=== PATIENT | female | born 1970 | race Hispanic/Latino ===

== ENCOUNTER 2017-12-09 20:35 | Emergency (ER) | payer OTHER ==
[~2017-12-09] VITALS: Ht 154.9 cm; Wt 87.1 kg
[~2017-12-09 20:35] MED LIST: FERROUS SULFAT325 MG PO; LISINOPRIL40 MG PO; LISINOPRIL5 MG PO; LOVASTATIN20 MG PO; NORCO 5-325 TA1 EACH PO; PROTONIX40 MG PO; VITAMIN C500 MG/15 PO
--- NOTE | 2017-12-10 13:38 | EKG ---
[facility] [address] [facility] [place] [address] Signed Normal sinus rhythm Possible Left atrial enlargement Low voltage QRS Borderline ECG Confirmed by MARIA DE JESUS DELANEY MD ([id number]) on 12/10/2017 1:38:01 PM Electronically Signed By: MARIA DE JESUS DELANEY MD 12/10/17 1338 PATIENT NAME: TY TRIVEDICHIARA Electrocardiogram DATE OF : 66 PHYSICIAN: MARIA DE JESUS DELANEY MD REPORT #: [id number] REPORT IS CONFIDENTIAL AND NOT TO BE RELEASED WITHOUT AUTHORIZATION
== END 2017-12-09 23:19 | disposition home or self-care (01) ==
LOC: ED 20:35
DX: G43.109 Migraine with aura, not intractable, without status migrainosus (principal); I10 Essential (primary) hypertension; Z79.899 Other long term (current) drug therapy
CPT/HCPCS: 70450; 80053; 84484; 84703; 85025; 85651; 93005; 93010; 96374; 96375; 99284; J1200; J2765

== ENCOUNTER 2018-05-08 17:07 | Emergency (ER) | payer OTHER ==
[~2018-05-08] VITALS: Ht 154.9 cm; Wt 87.1 kg
[2018-05-08] MEDS ORDERED: PAROXETINE HCL20 MG PO (17:19)
[2018-05-08] MEDS ORDERED: METOPROLOL TART25 MG PO (17:19)
== END 2018-05-08 18:12 | disposition home or self-care (01) ==
LOC: ED 17:07
DX: S70.01XA Contusion of right hip, initial encounter (principal); W18.2XXA Fall in (into) shower or empty bathtub, initial encounter; I10 Essential (primary) hypertension; E78.00 Pure hypercholesterolemia, unspecified; Z79.899 Other long term (current) drug therapy
CPT/HCPCS: 73502; 99283

== ENCOUNTER 2018-09-19 08:13 | Emergency (ER) | payer OTHER ==
[~2018-09-19] VITALS: Ht 154.9 cm; Wt 87.1 kg
[~2018-09-19 08:13] MED LIST changes: +METOPROLOL TART25 MG PO; +PAROXETINE HCL20 MG PO
[2018-09-19] MEDS ORDERED: ZOFRAN ODT4 MG PO (10:00)
[2018-09-19] MEDS ORDERED: MECLIZINE HCL25 MG PO (10:00)
--- NOTE | 2018-09-20 08:23 | EKG ---
[facility] [address] [facility] [place] [address] Signed Normal sinus rhythm Low voltage QRS Borderline ECG Confirmed by MARIA DE JESUS DELANEY MD ([id number]) on 09/20/2018 8:22:57 AM Electronically Signed By: MARIA DE JESUS DELANEY MD 09/20/18 0823 PATIENT NAME: CRAWFORD SEGUN TRIVEDIRIELA Electrocardiogram DATE OF : 66 PHYSICIAN: MARIA DE JESUS DELANEY MD REPORT #: [id number] REPORT IS CONFIDENTIAL AND NOT TO BE RELEASED WITHOUT AUTHORIZATION
== END 2018-09-19 10:22 | disposition home or self-care (01) ==
LOC: ED 08:13
DX: R42 Dizziness and giddiness (principal); I10 Essential (primary) hypertension; E78.00 Pure hypercholesterolemia, unspecified; Z79.899 Other long term (current) drug therapy
CPT/HCPCS: 70450; 80053; 84484; 85025; 93005; 93010; 96374; 99284

== ENCOUNTER 2019-08-21 09:47 | Emergency (ER) | payer OTHER ==
[~2019-08-21] VITALS: Ht 154.9 cm; Wt 87.1 kg
--- OUTSIDE RECORDS SUMMARY | ~2019-08-21 | XMS | Clinical Summary ---
Demographics + + + | Address | [address] | | | [place] [address] | + + + | Home Phone | | + + + | Preferred Language | Unknown | + + + | Marital Status | | + + + | Confucianist Affiliation | [id number] | + + + | Race | Unknown | + + + | Ethnic Group | Unknown | + + + Author + + + | Author | [facility] (Historical as of | | | 06-28-19) | + + + | Organization | [facility] (Historical as of | | | [...] Team Providers + +------+ + | Care Tobacco Curer Name | Role | Phone | + [...] + | [employer] | FC-NET | [id number] | | | | | | WORK | | | | | + +--------+ +------+-------+ + | MEDICAID | MEDICA | [id number] | | | [address] | | | [place] | | | | [place] | | | [place] | | | | [address] | + +--------+ +------+-------+ + + +--------+ [...] | 1970 | [phone] | [place] [address] | | | umm | | | [phone] | | + +--------+ +--------+ + +"
[~2019-08-21 09:47] MED LIST changes: +MECLIZINE HCL25 MG PO; +ZOFRAN ODT4 MG PO
--- OUTSIDE RECORDS SUMMARY | 2019-08-21 09:50 | XMS ---
PreManage Notification: CHIARA CARROLL Security Offset Label Rewinder Events No recent Security Events currently on file CRITERIA MET - Group Notification - [facility] [place] CARE PROVIDERS JAMES MATHEWS Physician Computer Numerical Control Grinder 09/25/2018-Current PHONE: [phone] Meera Burks Nurse Practitioner: Family Current INSPECTOR AIDE PHONE: Unknown Meera Burks Treatment Current INSPECTOR AIDE PHONE: Unknown [facility] Current [facility] PHONE: [phone] Anika has no Care Guidelines for this patient. Care History Medical/Surgical 09/25/2018 [facility] - W CONTACTED DR JAMES MATHEWS OFFICE. - PATIENT HAS NOT SEEN PROVIDER AND OR CLINIC SINCE FEBRUARY 22, 2016. - PATIENT DOES NOT HAVE A PCP. - W SENT PATIENT A NO PCP LETTER. E.D. VISIT COUNT (12 MO.) 3 [facility]. TOTAL 3 NOTE: Visits indicate total known visits. ED/UCC VISIT TRACKING (12 MO.) 08/21/2019:48 [facility] [place] TYPE: Emergency COMPLAINT: - VOMITING, FEVER 09/24/2018 21:[address] [facility] [place] TYPE: Emergency COMPLAINT: - BLOOD PRESSURE PROBLEM,CHEST PAIN DIAGNOSES: - Essential (primary) hypertension - Other detention (current) drug therapy - Pure hypercholesterolemia, unspecified - Other chest pain - Chest pain, unspecified 09/19/2018 08:[address] [facility] [place] TYPE: Emergency COMPLAINT: - HEAD PAIN,NON INJURY DIAGNOSES: - Pure hypercholesterolemia, unspecified - Headache - Essential (primary) hypertension - Other meterman (current) drug therapy - Dizziness and giddiness INPATIENT VISIT TRACKING (12 MO.) No inpatient visits to display in this time frame [email or web address]
[2019-08-21] MEDS ORDERED: LISINOPRIL-HCT1 EAC1 PO (10:00)
[2019-08-21] MEDS ORDERED: ACID REDUCER 1150 MG PO (10:00)
[2019-08-21] MEDS ORDERED: PRAVASTATIN SOD10 MG PO (10:01)
[2019-08-21] MEDS ORDERED: ONDANSETRON ODT8 MG PO (16:29)
== END 2019-08-21 16:37 | disposition home or self-care (01) ==
LOC: ED 09:47
DX: A90 Dengue fever [classical dengue] (principal); B34.9 Viral infection, unspecified; I10 Essential (primary) hypertension; E78.00 Pure hypercholesterolemia, unspecified; Z79.899 Other long term (current) drug therapy
CPT/HCPCS: 36415; 80053; 85025; 96361; 96374; 96375; 99283-25; J1885; J2405; J7030

== ENCOUNTER 2019-08-24 17:18 | Emergency (ER) | payer OTHER ==
[~2019-08-24] VITALS: Ht 154.9 cm; Wt 87.1 kg
--- OUTSIDE RECORDS SUMMARY | ~2019-08-24 | XMS | Clinical Summary ---
Demographics + + + | Address | [address] | | | [place] [address] | + + + | Home Phone | | + + + | Preferred Language | Unknown | + + + | Marital Status | | + + + | Alevism Affiliation | 1041 | + + + | Race | Unknown | + + + | Ethnic Group | Unknown | + + + Author + + + | Author | [facility] [employer] (Historical as of | | | 06-28-19) | + + + | Organization | [facility] (Historical as of | | | 06-28-19) | + + + | Address | Unknown | + + + | Phone | Unavailable | + + + Support + + +---------+ + | Name | Relationship | Address | Phone | + + +---------+ + | Glo King | ECON | Unknown | | | Martín | | | | + + +---------+ + Care Team Providers + +------+ + | Care Pulpit Operator Name | Role | Phone | + +------+ + | Meera Burks | PP | | + +------+ + Allergies + + + + + + | Active Allergy | Reactions | Severity | Noted | Comments | | | | | Date | | + + + + + + | Amoxicillin | Hives | High | 11/11/20 | | | | | | 18 | | + + + + + + | Clarithromycin | Hives | High | 11/11/20 | | | | | | 18 | | + + + + + + | Atorvastatin | Other (See Comments) | Medium | 11/11/20 | Fatigue and Muscle | | | | | 18 | Pain. | + + + + + + Current Medications + + +-------+---------+------+------+-------+ | Prescription | Sig. | Disp. | Refills | Star | End | Statu | | | | | | t | Date | s | | | | | | Date | | | + + +-------+---------+------+------+-------+ | pravastatin | Take 10 mg by mouth | | | | | Activ | | (PRAVACHOL) 10 MG | nightly. | | | | | e | | tablet | | | | | | | + + +-------+---------+------+------+-------+ | azithromycin | Take 250 mg by mouth | | | | | Activ | | (ZITHROMAX) 250 MG | daily. TAKE TWO | | | | | e | | tablet | TABLETS BY MOUTH NOW | | | | | | | | then ONE TABLET | | | | | | | | DAILY DAY 2-5 | | | | | | + + +-------+---------+------+------+-------+ | PARoxetine (PAXIL) | Take 30 mg by mouth | | | | | Activ | | 30 MG tablet | every morning. | | | | | e | + + +-------+---------+------+------+-------+ | metoprolol | Take 25 mg by mouth | | | | | Activ | | (LOPRESSOR) 25 MG | 2 (two) times daily. | | | | | e | | tablet | | | | | | | + + +-------+---------+------+------+-------+ | ondansetron | Take 4 mg by mouth 3 | | | | | Activ | | (ZOFRAN) 4 MG tablet | (three) times daily | | | | | e | | | as needed for | | | | | | | | Nausea. | | | | | | + + +-------+---------+------+------+-------+ | aspirin 81 MG | Take 81 mg by mouth | | | | | Activ | | tablet | daily. | | | | | e | + + +-------+---------+------+------+-------+ | meclizine | Take 25 mg by mouth | | | | | Activ | | (ANTIVERT) 25 MG | 3 (three) times | | | | | e | | tablet | daily as needed. | | | | | | + + +-------+---------+------+------+-------+ | lisinopril | Take 40 mg by mouth | | | | | Activ | | (ZESTRIL) 40 MG | daily. | | | | | e | | tablet | | | | | | | + + +-------+---------+------+------+-------+ | ranitidine | Take 150 mg by mouth | | | | | Activ | | (ZANTAC) 150 MG | 2 (two) times | | | | | e | | tablet | daily. | | | | | | + + +-------+---------+------+------+-------+ | pantoprazole | Take 40 mg by mouth | | | | | Activ | | (PROTONIX) 40 MG | every morning before | | | | | e | | tablet | breakfast. | | | | | | + + +-------+---------+------+------+-------+ Active Problems Not on file Social History + +-------+ +--------+------+ | Tobacco Use | Types | Packs/Day | Years | Date | | | | | Used | | + +-------+ +--------+------+ | Never Smoker | | | | | + +-------+ +--------+------+ + +---+---+---+ | Smokeless Tobacco: | | | | | Never Used | | | | + +---+---+---+ + + +---------+ + | Alcohol Use | Drinks/We | oz/Week | Comments | | | ek | | | + + +---------+ + | Yes | | | Ocassionally. | + + +---------+ + + + + | Sex Assigned at | Date Recorded | | | | + + + | Not on file | | + + + Plan of Treatment + + + + + | Health Maintenance | Due Date | Last Done | Comments | + + + + + | Vaccine: | | | | | Dtap/Tdap/Td (1 - | 7 | | | | Tdap) | | | | + + + + + | Cervical Cancer | | | | | Screening (Pap) | 8 | | | + + + + + | Vaccine: Zoster (1 | | | | | of 2) | 8 | | | + + + + + | Vaccine: Influenza | | | | | (#1) | 9 | | | + + + + + Results Not on filefrom Last 3 Months Insurance + +--------+ +------+-------+ + | Payer | Benefi | Subscriber | Type | Phone | Address | | | t Plan | ID | | | | | | / | | | | | | | Group | | | | | + +--------+ +------+-------+ + | [employer] | FC-NET | [id number] | | | | | | WORK | | | | | + +--------+ +------+-------+ + | MEDICAID | MEDICA | [id number] | | | [address] | | | ID | | | | [place] | | | [place] | | | | [phone] | + +--------+ +------+-------+ + + +--------+ +--------+ + + | Guarantor Name | Accoun | Relation to | Date | Phone | Billing Address | | | t Type | Patient | of | | | | | | | | | | + +--------+ +--------+ + + | TY DE | Person | Self [birth year] Home: | [address] | | CHIARA KING | al/Humble | | 1970 | [phone] | [place] [address] | | | umm | | | [phone] | | + +--------+ +--------+ + +"
--- OUTSIDE RECORDS SUMMARY | ~2019-08-24 | XMS | Clinical Summary ---
Demographics + + + | Address | [address] | | | [place] [address] | + + + | Home Phone | | + + + | Preferred Language | Unknown | + + + | Marital Status | | + + + | Restorationist Affiliation | 1041 | + + + | Race | Unknown | + + + | Ethnic Group | Unknown | + + + Author + + + | Author | [facility] (Historical as of | | | 06-28-19) | + + + | Organization | [facility] (Historical as of | | | [...] Team Providers + +------+ + | Care Spring Machine Operator Name | Role | Phone | [...] + | [employer] | FC-NET | [id number] | | | | | | WORK | | | | | + +--------+ +------+-------+ + | MEDICAID | MEDICA | [id number] | | | [address] | | | ID | | | | [place] | | | [place] | | | | [phone] | + +--------+ +------+-------+ + + +--------+ [...] | 1970 | [phone] | [place] [address] | | | umm | | | [phone] | | + +--------+ +--------+ + +"
[~2019-08-24 17:18] MED LIST changes: +ACID REDUCER 1150 MG PO; +LISINOPRIL-HCT1 EAC1 PO; +ONDANSETRON ODT8 MG PO; +PRAVASTATIN SOD10 MG PO
--- OUTSIDE RECORDS SUMMARY | 2019-08-24 17:22 | XMS ---
PreManage Notification: CHIARA CARROLL Security Jewel Grinder Events No recent Security Events currently on file CRITERIA MET - Group Notification - [facility] - Has Care Guidelines - [facility] - 2 Visits in 30 Days CARE PROVIDERS JAMES MATHEWS Physician 09/25/2018-Current PHONE: [phone] Meera Burks Nurse Practitioner: Family Current PHARMACOMETRICIAN PHONE: Unknown Meera Burks Treatment Current PHARMACOMETRICIAN PHONE: Unknown [facility] PHONE: [phone] Anika has no Care Guidelines for this patient. Care History Medical/Surgical 09/25/2018 [facility] - W CONTACTED DR JAMES MATHEWS OFFICE. - PATIENT HAS NOT SEEN PROVIDER AND OR CLINIC SINCE FEBRUARY 22, 2016. - PATIENT DOES NOT HAVE A PCP. - W SENT PATIENT A NO PCP LETTER. E.[place]. VISIT COUNT (12 MO.) 4 [facility]. TOTAL 4 NOTE: Visits indicate total known visits. ED/UCC VISIT TRACKING (12 MO.) 08/24/2019 17:[address] [facility] [place] TYPE: Emergency COMPLAINT: - VOMITING, FEVER 08/21/2019 09:48 [facility] [place] TYPE: Emergency COMPLAINT: - VOMITING, FEVER 09/24/2018 21:[address] [facility] [place] TYPE: Emergency COMPLAINT: - BLOOD PRESSURE PROBLEM,CHEST PAIN DIAGNOSES: - Essential (primary) hypertension - Other skilled nursing (current) drug therapy - Pure hypercholesterolemia, unspecified - Other chest pain - Chest pain, unspecified 09/19/2018 08:[address] [facility] [place] TYPE: Emergency COMPLAINT: - HEAD PAIN,NON INJURY DIAGNOSES: - Pure hypercholesterolemia, unspecified - Headache - Essential (primary) hypertension - Other skilled nursing (current) drug therapy - Dizziness and giddiness INPATIENT VISIT TRACKING (12 MO.) No inpatient visits to display in this time frame [email or web address]
[2019-08-24] MEDS ORDERED: ZOFRAN4 MG PO (19:36)
== END 2019-08-24 20:26 | disposition home or self-care (01) ==
LOC: ED 17:18
DX: B34.9 Viral infection, unspecified (principal); I10 Essential (primary) hypertension; Z79.899 Other long term (current) drug therapy
CPT/HCPCS: 80053; 81001; 83605; 85025; 85610; 85730; 96361; 96374; 99284-25; J2405; J7030

== ENCOUNTER 2023-03-14 09:06 | Emergency (ER) | payer OTHER ==
[~2023-03-14] VITALS: Ht 154.9 cm; Wt 90.7 kg
[~2023-03-14 09:06] MED LIST changes: +HYDROXYZINE PAM25 MG PO; +LEVOTHYROXINE50 MCG PO; +OMEPRAZOLE20 MG PO; +ZOFRAN4 MG PO
--- OUTSIDE RECORDS SUMMARY | 2023-03-14 09:11 | XMS ---
PreManage Notification: CHIARA CARROLL Security Scrubber Machine Tender Events No recent Security Events currently on file CRITERIA MET - [facility] - 2 Visits in 30 Days - Group Notification CARE PROVIDERS -, [place]- Dentist: Bid Manager [facility] PHONE: [phone] JAMES MATHEWS Physician Senior Tax Specialist 09/25/2018-Current PHONE: Unknown Meera Burks Nurse Practitioner: Family Current SPARE HAND CARDING PHONE: Unknown Anika has no Care Guidelines for this patient. Care History Medical/Surgical 09/25/2018 [facility] - W CONTACTED DR JAMES MATHEWS OFFICE. - PATIENT HAS NOT SEEN PROVIDER AND OR CLINIC SINCE FEBRUARY 22, 2016. - PATIENT DOES NOT HAVE A PCP. - W SENT PATIENT A NO PCP LETTER. EEusebia VISIT COUNT (12 MO.) 2 [facility] TOTAL 2 NOTE: Visits indicate total known visits. ED/UCC VISIT TRACKING (12 MO.) 03/14/2023 09:06 [facility] [place] TYPE: Emergency COMPLAINT: - EXTREMITY PAIN/INJURY 03/07/2023 22:[address] [facility] [facility] [place] TYPE: Emergency COMPLAINT: - LT ARM INJURY DIAGNOSES: - Displaced fracture of coracoid process, left shoulder, initial encounter for closed fracture - Displaced fracture of head of left radius, initial encounter for closed fracture - Essential (primary) hypertension - Fall on same level from slipping, tripping and stumbling without subsequent striking against object, initial encounter - Hormone replacement therapy - Other terminal manager (current) drug therapy - Pain in left elbow INPATIENT VISIT TRACKING (12 MO.) No inpatient visits to display in this time frame [email or web address]
[2023-03-14] MEDS ORDERED: HYDROCODON-ACE1 EA10 PO (13:58)
[2023-03-14 14:30] VITALS: BP 143/91
== END 2023-03-14 14:30 | disposition home or self-care (01) ==
LOC: ED 09:06
DX: S52.122A Displaced fracture of head of left radius, initial encounter for closed fracture (principal); S52.042A Displaced fracture of coronoid process of left ulna, initial encounter for closed fracture; X58.XXXA Exposure to other specified factors, initial encounter; I10 Essential (primary) hypertension; Z79.899 Other long term (current) drug therapy
CPT/HCPCS: 73070; 73080; 73200; J1170; J2250

== ENCOUNTER 2024-05-26 17:21 | Emergency (ER) | payer OTHER ==
[~2024-05-26] VITALS: Ht 154.9 cm; Wt 104.0 kg
[~2024-05-26 17:21] MED LIST changes: +HYDROCODON-ACE1 EA10 PO; +NAPROSYN500 MG PO; +ONDANSETRON ODT4 MG PO
[2024-05-26] MEDS ORDERED: NITROGLYCERIN 0.4 MG SUBL SL PRN (18:15)
[2024-05-26] MEDS ORDERED: ASPIRIN 81 MG CHEW PO ONE (18:15)
[2024-05-26 18:17] LABS: BASOPHILS 0.9 % (0-2); EOSINOPHILS 0.6 % (0-6); HEMATOCRIT 44.1 % (35.0-50.0); HEMOGLOBIN 14.2 g/dL (12.0-18.0); LYMPHOCYTES 17.4 % (24-44); MCH 26.7 (27-36); MCHC 32.3 g/dl (30-36); MCV 82.8 fl (81-99); NEUTROPHILS 76.1 % (39-80); PLATELET COUNT 339 K/uL (140-440); RBC 5.33 M/ul (4.3-5.7); RDW 17.8 (10.5-15.0)
[2024-05-26] MEDS ORDERED: PAROXETINE HCL40 MG PO (18:22)
[2024-05-26 18:28] LABS: ALBUMIN 3.5 g/dL (3.4-5.0); ALBUMIN/GLOBULIN RATIO 0.64 (1.1-2.4); ALKALINE PHOSPHATASE 151 U/L (46-116); ALT (SGPT) 27 U/L (14-59); ANION GAP 12.7 (7-21); AST (SGOT) 19 U/L (15-37); BILIRUBIN, TOTAL 0.5 ng/dL (0.2-1.0); BUN/CREATININE RATIO 12.72 (6.0-28.6); CALCIUM 9.1 mg/dL (8.5-10.1); CARBON DIOXIDE 30 mmol/L (21-32); CHLORIDE 101 mmol/L (98-107); GLOMERULAR FILTRATION RATE,EST 59 mL/min (>60); MAGNESIUM 1.7 mg/dL (1.8-2.4); POTASSIUM 3.7 mmol/L (3.5-5.1); UREA NITROGEN 14 mg/dL (7-18)
[2024-05-26] MEDS ORDERED: LORazepam 0.5 MG TAB PO ONE (19:45)
[2024-05-26] MEDS ORDERED: MAGNESIUM OXIDE 400 MG TABLET PO ONE (20:15)
[2024-05-26] MEDS ORDERED: LORazepam 1 MG HOME.PACK PO ONE (20:15)
[2024-05-26 20:31] VITALS: BP 122/76
--- NOTE | 2024-05-26 21:29 | EKG ---
[facility] [address] [facility] [address] [place] [address] Signed Normal sinus rhythm Low voltage QRS Borderline ECG When compared with ECG of 24-SEP-2018 21:16, No significant change was found Confirmed by Fabiola Sanders MD () on 05/26/2024 9:29:42 PM Electronically Signed By: FABIOLA SANDERS MD 05/26/242128 PATIENT NAME: CHIARA CARROLL Electrocardiogram DATE OF : 66 PHYSICIAN: FABIOLA SANDERS MD REPORT #: [id number] REPORT IS CONFIDENTIAL AND NOT TO BE RELEASED WITHOUT AUTHORIZATION
== END 2024-05-26 20:32 | disposition home or self-care (01) ==
LOC: ED 17:21
PROVIDERS: Emergency Medicine
DX: F41.0 Panic disorder [episodic paroxysmal anxiety] (principal); I10 Essential (primary) hypertension; E78.00 Pure hypercholesterolemia, unspecified; E03.9 Hypothyroidism, unspecified; Z79.890 Hormone replacement therapy; Z79.899 Other long term (current) drug therapy
CPT/HCPCS: 36415; 71045; 80053; 83735; 84484; 85025; 93005; 93010; A9270

== ENCOUNTER 2025-07-22 08:49 | Emergency (ER) | payer OTHER ==
[~2025-07-22] VITALS: Ht 154.9 cm; Wt 100.9 kg
[~2025-07-22 08:49] MED LIST changes: +PAROXETINE HCL40 MG PO
[2025-07-22] MEDS ORDERED: PRAVASTATIN SOD20 MG PO (09:08)
[2025-07-22] MEDS ORDERED: TOPIRAMATE50 MG PO (09:09)
[2025-07-22] MEDS ORDERED: OLANZAPINE2.5 MG PO (09:10)
[2025-07-22 09:16] LABS: BASOPHILS 0.8 % (0.1-1.2); EOSINOPHILS 1.3 % (0.7-5.8); LYMPHOCYTES 25.9 % (19.3-51.7); MCH 26.8 PG (25.6-32.2); MCHC 31.5 g/dL (32.2-35.5); MCV 84.9 fL (79.4-94.8); MONOCYTES 4.2 % (4.7-12.5); NEUTROPHILS 67.5 % (34.0-71.1); RBC 5.23 M/uL (3.93-5.22)
[2025-07-22 09:28] LABS: INR 0.99 (0.80-1.30); PROTIME 12.4 Sec (11.2-14.2)
[2025-07-22 09:41] LABS: ALT (SGPT) 18.0 U/L (14-59); AST (SGOT) 17.0 U/L (15-37); GLOMERULAR FILTRATION RATE,EST 87.0 mL/min (>60); PROTEIN, TOTAL 8.1 g/dL (6.4-8.2); UREA NITROGEN 10.0 mg/dL (7-18)
[2025-07-22 09:56] LABS: BLOOD/HGB, URINE NEGATIVE (Negative); KETONE, URINE NEGATIVE (Negative); LEUK ESTERASE, URINE NEGATIVE (negative); NITRITE, URINE NEGATIVE (negative)
[2025-07-22] MEDS ORDERED: LORazepam 2 MG/ML VIAL IV ONE (10:00)
[2025-07-22 10:03] LABS: BACTERIA, URINE NONE SEEN /hpf (negative); CASTS, URINE NONE SEEN \\lpf; CRYSTALS, URINE NONE SEEN (0-1+); EPITHELIAL CELLS, URINE SQUAMOUS 1+ /lpf (0-1+)
[2025-07-22 10:04] LABS: REFLEX CULTURE, URINE No (No)
[2025-07-22] MEDS ORDERED: MECLIZINE HCL25 MG PO (10:54)
[2025-07-22 11:08] VITALS: BP 138/96
--- NOTE | 2025-07-22 18:51 | EKG ---
[facility] [address] [facility] [place] [address] Signed Normal sinus rhythm Normal ECG When compared with ECG of 26-MAY-2024 17:43, No significant change was found Confirmed by Marilou Tate DO ([id number]) on 07/22/2025 6:50:48 PM Electronically Signed By: MARILOU TATE DO 07/22/251850 PATIENT NAME: CHIARA CARROLL Electrocardiogram DATE OF : 66 PHYSICIAN: MARILOU TATE DO REPORT #: [id number] REPORT IS CONFIDENTIAL AND NOT TO BE RELEASED WITHOUT AUTHORIZATION
== END 2025-07-22 11:08 | disposition home or self-care (01) ==
LOC: ED 08:49
PROVIDERS: Emergency Medicine
DX: R42 Dizziness and giddiness (principal); E78.00 Pure hypercholesterolemia, unspecified; E03.9 Hypothyroidism, unspecified; I10 Essential (primary) hypertension; Z79.899 Other long term (current) drug therapy
CPT/HCPCS: 36415; 70450; 70496; 70498; 70551; 71045; 80053; 81001; 84484; 85025; 85610; 85730; 93005; 93010; 96374; 99284-25; J2060; Q9967

== ENCOUNTER 2025-09-09 05:55 | Emergency (ER) | payer OTHER ==
[~2025-09-09] VITALS: Ht 154.9 cm; Wt 100.9 kg
[~2025-09-09 05:55] MED LIST changes: +OLANZAPINE2.5 MG PO; +PRAVASTATIN SOD20 MG PO; +TOPIRAMATE50 MG PO
[2025-09-09] MEDS ORDERED: PIPERACILLIN/TAZOBACTAM 3.375 GM in SODIUM CHLORIDE 0.9% 100 ML IV ONE (06:30)
[2025-09-09] MEDS ORDERED: IBLOOD GLUCOSE TEST STRIP 1 EA TEST XX ONE (06:30)
[2025-09-09 07:11] LABS: INR 0.95 (0.80-1.30); PROTIME 12.2 Sec (11.2-14.2)
[2025-09-09 07:14] LABS: BASOPHILS 0.7 % (0.1-1.2); EOSINOPHILS 1.6 % (0.7-5.8); LYMPHOCYTES 19.6 % (19.3-51.7); MCH 27.4 PG (25.6-32.2); MCHC 32.0 g/dL (32.2-35.5); MCV 85.8 fL (79.4-94.8); MONOCYTES 4.8 % (4.7-12.5); NEUTROPHILS 73.1 % (34.0-71.1); RBC 5.07 M/uL (3.93-5.22)
[2025-09-09 07:20] LABS: ALT (SGPT) 23.0 U/L (14-59); AST (SGOT) 16.0 U/L (15-37); GLOMERULAR FILTRATION RATE,EST 102.0 mL/min (>60); PROTEIN, TOTAL 7.9 g/dL (6.4-8.2); UREA NITROGEN 17.0 mg/dL (7-18)
[2025-09-09] MEDS ORDERED: SODIUM CHLORIDE 0.9% 1,000 ML IV PRN (08:15)
[2025-09-09] MEDS ORDERED: PROCHLORPERAZINE EDISYLATE 10 MG/2 ML VIAL IV ONE (08:15)
[2025-09-09 08:27] LABS: AMPHETAMINES, URINE NEGATIVE (NEGATIVE); BARBITURATES, URINE NEGATIVE (NEGATIVE); BENZODIAZEPINE, URINE NEGATIVE (NEGATIVE); CANNABINOID, URINE NEGATIVE (NEGATIVE); COCAINE, URINE NEGATIVE (NEGATIVE); ECSTASY, URINE NEGATIVE (NEGATIVE); FENTANYL, URINE NEGATIVE (NEGATIVE); METHADONE, URINE NEGATIVE (NEGATIVE); OPIATES, URINE NEGATIVE (NEGATIVE); OXYCODONE, URINE NEGATIVE (NEGATIVE); PHENCYCLIDINE, URINE NEGATIVE (NEGATIVE)
[2025-09-09 10:31] VITALS: BP 98/72
== END 2025-09-09 10:31 | disposition home or self-care (01) ==
LOC: ED 05:55
PROVIDERS: Internal Medicine
DX: R51.9 Headache, unspecified (principal); I10 Essential (primary) hypertension
CPT/HCPCS: 36415; 70450; 70496; 70498; 71045; 80053; 80307; 84484; 85025; 85610; 85730; 93005; 93010; 96374; 96375; 99284-25; J0780; J1200; J7030; Q9967